=== PATIENT | male | born 1970 | race Caucasian/White ===

== ENCOUNTER 2016-11-24 18:09 | Emergency (ER) | payer MEDICARE ==
--- NOTE | 2016-11-24 18:24 | EDPRACDOC ---
- General Information Chief Complaint: Toothache Stated Complaint: DENTAL PAIN Time Seen by Provider: 11/24/16 18:20 Home Medications: Home Medications Albuterol Sulfate [Albuterol Sulfate Hfa] 1 - 2 puff INH Q4H PRN #1 each Lovastatin 20 mg PO .WITH SUPPER 06/24/14 Amitriptyline HCl [Elavil] 50 mg PO HS 07/24/16 Tramadol HCl [Ultram] 100 mg PO QID 07/24/16 Cyclobenzaprine HCl [Flexeril] 5 mg PO DAILY 09/19/16 Meloxicam [Mobic] 15 mg PO DAILY #30 tab 09/19/16 Zolpidem Tartrate [Ambien] 5 mg PO HS 09/19/16 Amoxicillin Trihydrate [Amoxicillin] 500 mg PO TID #21 tab 11/07/16 Hydrocodone Bit/Acetaminophen [Hydrocodon-Acetaminophen 5-325] 1 tab PO Q6 PRN # 15 tab 11/07/16 Hydrocodone Bit/Acetaminophen [Hydrocodon-Acetaminophen 5-325] 1 tab PO Q6 PRN # 15 tab 11/24/16 Allergies/Adverse Reactions: Allergies Allergy/AdvReac Type Severity Reaction Status Date / Time No Known Allergies Allergy Verified 11/07/16 19:11 - History of Present Illness Onset: RECURRENT HPI: PT COMPLAINS OF CONTINUED PAIN IN RIGHT UPPER TOOTH, DESCRIBES PAIN THROBBING AND SEVERE, SEEN IN ED ON 11/07/16 FOR SAME, HAS NOT FOLLOWED UP WITH DENTIST. PT STATES SEEN AT [facility] 2 NIGHT AGO FOR SAME, GIVEN ABX, STATES "THEY ONLY GAVE ME 4 PAIN PILLS". Pain Severity: Reports: Severe Relevant History of: Reports: None Modifying Factors: improves with: Heat, Cold, Chewing. worse with: Anagelsics Associated Signs and Symptoms: Denies: Fever, Chills, Earache, Sore Throat ED Past Medical History - History Reviewed Yes Nurses notes reviewed and agree except as marked - Patient Medical History Cardiac History: Reports: Hypercholesterolemia Respiratory History: Reports: COPD Psychological History: Denies: Depression Surgical History: Reports: Other (RIGHT KNEE) - Social Medical History Smoking Status: Former smoker EDM Review of Systems - Review of Systems Constitutional: negative: Chills, Fever Eyes: negative: Blurred Vision, Double Vision Ears: negative: Drainage Throat: negative: Pain Nose: negative: Congestion, Discharge Mouth: Tooth Pain Respiratory: negative: Cough, Shortness of Breath, Wheezing Gastrointestinal: negative: Nausea, Vomiting Neurological: negative: Headache Integumentary: No Symptoms Reported - Physical Exam Constitutional: Alert (Awake), No apparent distress Oriented to: Time, Person, Place Last recorded Vital Signs: Oxygen Pulse Oxygen Saturation O2 Device Oxygen Flow Rate Fraction of Inspired Oxygen ( FIO2) - HEENT Head: Normal ( normocephalic) Eye Exam: Normal (PERRL, EOMI, Sclera white) Oropharynx: Normal (Pharynx:Moist without exudate,Gums-no swelling) Tympanic Membrane: Normal ENT EAC: Normal TMJ: Normal Nose: No Symptoms Reported (septum midline) Neck: Normal (FROM, trachea at midline) - Respiratory/Cardiovascular Respiratory: Normal - CTA (BBS clear to auscultation without adventitious sounds ) Cardiovascular: Normal (RRR without murmur, gallop or rub) - Integumentary Skin: Normal, Warm, Dry Lymphatics: Normal (no adenopathy) - Neurologic Memory Impaired: Normal Motor Function: Normal (Normal tone, Pulses 2+ No cyanosis or edema, FROM) Cranial Nerve: Normal (CN II-X11 intact sensation, strength 5/5) Cerebellar: Normal Mood Description: Normal Perception: Normal ED Tooth Problem Exam - HEENT Face: Normal Teeth: Right: Molar-3 Upper (TENDER, CARIOUS, NECROTIC) Gingiva: Normal Palate: Normal Mouth Range of Motion: Normal Sinuses: Normal Oropharynx: Normal Neck: Normal - Differential Diagnosis Periapical Abscess, Periodontal Abscess Decision Time to Discharge: 18:24 - Departure Disposition: Home Condition: Stable Final Diagnosis: Dental abscess (peridontal) Instructions: Dental Abscess (ED) Education/Counseling Given To: Patient Education/Counseling Given Regarding: Diagnosis, Treatment, Prognosis, Follow Up Referrals: Crow Anna MD [Primary Care Provider] - One Week Prescriptions: Hydrocodone Bit/Acetaminophen [Hydrocodon-Acetaminophen 5-325] 1 tab PO Q6 PRN # 15 tab PRN Reason: Pain Additional Instructions: Tooth Problem: You must follow up with a dentist as soon as possible, you may contact the [facility] at [phone] for assistance.
[2016-11-24 18:26] VITALS: BP 118/73; PULSE 124; TEMP 98; BMI 31.2
== END 2016-11-24 18:37 | disposition home or self-care (01) ==
LOC: EDMC 18:09
DX: K04.7 Periapical abscess without sinus (principal)
CPT/HCPCS: 99282